=== PATIENT | female | born 1965 ===

== ENCOUNTER 2020-10-14 06:40 | Day surgery (SDC) | payer OTHER ==
[~2020-10-14 06:40] MED LIST: BIOTIN PO; LIPITOR40 MG PO; PREMPRO PO; VITAMIN B12 PO; VITAMIN D PO; [UNRECOGNIZED DRUG - OTHER] PO
[2020-10-14] MEDS ORDERED: PERCOCET 5-3251 EACH PO (10:19)
== END 2020-10-14 12:50 | disposition home or self-care (01) ==
LOC: CIR.AMB 06:40
PROVIDERS: ATTEND Surgery
DX: D35.1 Benign neoplasm of parathyroid gland (principal); Z20.822 Contact with and (suspected) exposure to COVID-19